=== PATIENT | female | born 1990 | race Hispanic/Latino ===

== ENCOUNTER 2016-10-08 19:21 | Inpatient (IN) | payer MEDICAID ==
[2016-10-08] MEDS ORDERED: Lactated Ringer's 1,000 ML IV SCH (20:21)
[2016-10-08 20:35] VITALS: BMI 31.8
[2016-10-08 20:44] LABS: BASO % 0.4 % (0.0-2.0); EOS # 0.2 K/uL (0.0-0.7); EOS % 2.8 % (0.0-4.0); HEMATOCRIT 30.6 % (34.0-47.0); LYMPH % 22.6 % (20.0-40.0); MEAN CELL VOLUME 68.5 fl (81.0-99.0); MEAN CORPUSCULAR HEMOGLOBIN 21.4 pg (27.0-31.0); MEAN CORPUSCULAR HGB CONC 31.2 g/dL (33.0-37.0); MEAN PLATELET VOLUME 9.1 fl (7.2-11.7); MONO # 0.4 K/uL (0.0-0.8); NEUT # 6.1 K/uL (1.8-7.0); NEUT % 69.2 % (50.0-75.0); NRBC % 0.1 % (0.0-0.0); WHITE BLOOD COUNT 8.9 K/uL (4.8-10.8)
[2016-10-08] MEDS ORDERED: ceFAZolin 2 GM in Sodium Chloride 0.9% 100 ML IVPB ONE (20:45)
[2016-10-08] MEDS ORDERED: Morphine 1 mg/ml preservative-free Inj(Duramorph) ONE (21:52)
[2016-10-08] MEDS ORDERED: ePHEDrine 50 mg/ml Inj ONE ×3 (21:53→22:53)
[2016-10-08] MEDS ORDERED: Phenylephrine 10 mg/ml Inj ONE (21:53)
[2016-10-08] MEDS ORDERED: Atropine 0.4 mg/ml Inj (1 mL) ONE (22:13)
[2016-10-08] MEDS ORDERED: Ketamine 50 mg/ml Inj (10 ml) ONE (23:15)
[2016-10-08] MEDS ORDERED: Propofol 10 mg/ml Inj (20 ML) ONE (23:16)
[2016-10-08] MEDS ORDERED: Succinylcholine 200 mg/10 ml Inj IV ONE (23:16)
[2016-10-08] MEDS ORDERED: Absorbable Gelatin Sponge Size 12-7 ONE (23:23)
[2016-10-09] MEDS ORDERED: Oxycodone/Acetaminophen 5/325 mg Tab PO PRN (00:21)
[2016-10-09] MEDS ORDERED: Bisacodyl 5mg EC Tab PO PRN ×2 (00:31→18:53)
[2016-10-09] MEDS ORDERED: ceFAZolin 2 GM in Sodium Chloride 0.9% 100 ML IVPB ONE (00:35)
[2016-10-09 03:16] LABS: HEMATOCRIT 22.3 % (34.0-47.0); MEAN CELL VOLUME 68.4 fl (81.0-99.0); MEAN CORPUSCULAR HEMOGLOBIN 21.3 pg (27.0-31.0); MEAN CORPUSCULAR HGB CONC 31.1 g/dL (33.0-37.0); RED CELL DISTRIBUTION WIDTH 19.1 % (11.5-14.5); WHITE BLOOD COUNT 13.2 K/uL (4.8-10.8)
[2016-10-09] MEDS: DiphenhydrAMINE 50 mg/ml Inj IVP PRN ×2 (04:07→10:32)
[2016-10-09 06:40] VITALS: BP 116/70; PULSE 94; RESP 18; TEMP 98.4
[2016-10-09 10:51] LABS: BASO % 0.5 % (0.0-2.0); EOS # 0.1 K/uL (0.0-0.7); HEMATOCRIT 19.3 % (34.0-47.0); LYMPH # 1.4 K/uL (1.0-4.3); LYMPH % 16.6 % (20.0-40.0); MEAN CELL VOLUME 68.6 fl (81.0-99.0); MEAN CORPUSCULAR HEMOGLOBIN 21.3 pg (27.0-31.0); MEAN PLATELET VOLUME 8.8 fl (7.2-11.7); MONO # 0.5 K/uL (0.0-0.8); MONO % 5.7 % (0.0-10.0); NEUT # 6.7 K/uL (1.8-7.0); NEUT % 76.2 % (50.0-75.0); RED CELL DISTRIBUTION WIDTH 18.6 % (11.5-14.5); WHITE BLOOD COUNT 8.7 K/uL (4.8-10.8)
[2016-10-09] MEDS ORDERED: Lactated Ringer's 1,000 ML IV SCH (11:10)
[2016-10-09] MEDS ORDERED: Sodium Chloride 0.9% 1,000 ML IV SCH (11:45)
[2016-10-09] MEDS: Simethicone 80 mg Chewtab PO SCH ×2 (12:29→18:52)
[2016-10-09] MEDS ORDERED: DiphenhydrAMINE 50 mg/ml Inj IVP PRN (18:53)
[2016-10-09 19:05] LABS: BASO % 0.5 % (0.0-2.0); EOS # 0.2 K/uL (0.0-0.7); EOS % 1.8 % (0.0-4.0); HEMATOCRIT 24.1 % (34.0-47.0); LYMPH # 1.4 K/uL (1.0-4.3); LYMPH % 15.4 % (20.0-40.0); MEAN CELL VOLUME 73.2 fl (81.0-99.0); MEAN CORPUSCULAR HEMOGLOBIN 23.3 pg (27.0-31.0); MEAN CORPUSCULAR HGB CONC 31.9 g/dL (33.0-37.0); MEAN PLATELET VOLUME 8.5 fl (7.2-11.7); MONO # 0.6 K/uL (0.0-0.8); MONO % 6.4 % (0.0-10.0); NEUT # 6.9 K/uL (1.8-7.0); NEUT % 75.9 % (50.0-75.0); RED CELL DISTRIBUTION WIDTH 22.5 % (11.5-14.5); WHITE BLOOD COUNT 9.1 K/uL (4.8-10.8)
[2016-10-09 19:15] LABS: ALB/GLOB RATIO 0.9 (1.0-2.1); ALKALINE PHOSPHATASE 169 U/L (38-126); ALT/SGPT 27 U/L (9-52); AST/SGOT 37 U/L (14-36); BILIRUBIN,TOTAL 0.3 mg/dl (0.2-1.3); BLOOD UREA NITROGEN 4 mg/dl (7-17); CARBON DIOXIDE 24 mmol/L (22-30); CHLORIDE 104 mmol/L (98-107); GFR AFRICAN-AMERICAN > 60; GLUCOSE,RANDOM 70 mg/dL (65-105); POTASSIUM 3.5 MMOL/L (3.6-5.0); SODIUM 132 mmol/l (132-148)
[2016-10-10] MEDS: Simethicone 80 mg Chewtab PO SCH ×5 (01:08→21:57)
[2016-10-10] MEDS: Oxycodone/Acetaminophen 5/325 mg Tab PO PRN ×3 (06:29→21:58)
[2016-10-10] MEDS: Lactated Ringer's 1,000 ML IV SCH ×3 (06:31→21:55)
--- NOTE | 2016-10-10 11:02 | OBPPN ---
Datetime: 10/10/2016 08:20 PP Pain Prov: Within normal limits PP Nausea Prov: Denies PP Flatus Prov: Yes PP BM Prov: No PP Heart Prov: Normal PP Lungs Prov: Normal PP Lochia Prov: Normal PP Extremities Prov: Normal PP Comments Phys Exam Prov: not acute distress lungs CTA B/L RRR, S1S2, no murmurs, no calf tenderness Abd: Tender, Uterus umb level, firm, BS+ Incision covered with dressing, dry, clean Alert, orientedx3 PP Plan Prov: Continue present management PP Impression Other Prov: PP bleeding PP Progress Note Prov: POD2 Patient seen at bedside doing better, breast pumping in progress. Denies CP, palpitations or dizzi ness. She received 2 units or PRBC yesterday and states since then she feels better. Au in place w ith clear urine. Patient is tolerating PO liquids sicne last night. +Flatus, no BM. C/O pelvic pain c ontrolled with meds. Lochia less than menses. Transferred from L_D unit to PP unit this AM. PE: as above A: 25 y/o F s/p C-Sect POD2 PP bleeding P: -C/w current plan -Motrin and percocet PRN for pain. -C/w Au and f/u I_O -C/w dressing and monitor bleeding. Last H_H: 7.7/24.1 yesterday -reg diet -Will monitor closely Hong Pittman PGY1 Case discussed with Dr Da Silva Addendum by Dr. Da Silva: I have evaluated patient independently and I agree with the above. Patient stable, tolerating PO diet, VSS, +au draining clear urine >100/hr, denies CP, no SOB, no N/V, sitt ing up to chair, bandage over incision clean. Continue reg diet, Motrin/Percocet prn pain, Colace prn constipation, Mylicon prn gas pain, Encourage up to bed, will remove au later tonight or tomorrow IP PP Procedures: Transfusion Vital Signs Provider PP: Reviewed
[2016-10-10] MEDS ORDERED: TDAP Vaccine 0.5 mL Syr IM ONE (17:00)
[2016-10-10] MEDS ORDERED: Pneumococcal 23-Valent Vaccine IM ONE (17:00)
[2016-10-11] MEDS: Simethicone 80 mg Chewtab PO SCH ×2 (05:40→09:02)
[2016-10-11] MEDS: Oxycodone/Acetaminophen 5/325 mg Tab PO PRN (05:55)
--- NOTE | 2016-10-11 08:36 | OP ---
PROCEDURE DATE: 10/08/2016 SURGEON: Allison Da Silva. LAMP ASSEMBLER: , PGY-[address] Sellers. PREOPERATIVE DIAGNOSES: 1. Previous x 2. 2. Term at 39 weeks in labor. PROCEDURE: Repeat low transverse . POSTOPERATIVE DIAGNOSES: 1. Previous x 2. 2. Term at 39 weeks in labor. FINDINGS: Live male , 6 pounds 15 ounces, cephalic presentation, clear fluid, increased amount of dense adhesions. Normal placenta, unable to visualize tubes and ovaries and the majority of the uterus. ESTIMATED BLOOD LOSS: 1200 mL. URINE OUTPUT: 1200 mL. ANESTHESIA: Spinal by Dr. Mobley. COMPLICATIONS: None. CONDITION: Stable. PATHOLOGY SPECIMEN: Placenta. INDICATION: This is a 25-year-old G6, P2-0-3-2 at 39 weeks and 2 days, previous x 2 who pr esented to labor and delivery with abdominal pain and contractions. The patient was in early labor w as advised to proceed with a repeat . The patient also had 2 prior abdominoplasties as well , so total of 4 previous surgeries. The patient was advised of risks and benefits of the procedure i ncluding risk of bleeding, infection, damage to surrounding organs such as bowel, bladder, ureter, ut erus and signed informed consent as well as consent for blood transfusion. PROCEDURE: The patient was given Ancef en route to OR, IV fluids were running preoperatively. The p atient was given spinal anesthesia without difficulty. The patient was placed in dorsal lithotomy po sition with leftward tilt. Pfannenstiel incision was made with the scalpel and carried through the u nderlying layer of fascia with the Bovie. The patient's fascia was noted to be generally distorted b ecause of the 2 abdominoplasties that she had prior. Once attempting to enter the incision extended laterally with the Bovie. Skyler clamps were used to tent up the inferior and superior aspect of the incision and the pyramidalis muscles were dissected off of the lower aspect of this incision and the rectus abdominis muscles was, in a similar fashion, dissected off at the superior aspect of this inc ision with the Bovie. Allis clamps were used to tent up the midline and carefully with the scalpel, w e dissected through the midline. Again it was noted that there were dense amount of adhesions and it was very difficult to identify appropriate planes of tissue. Through careful dissection with the Me vang and Salgado scissors, we were able to dissect away the muscle and the vesicouterine peritoneal on the left side to reveal the anterior plane of the uterus on the left side. The right side was com pletely adhesed together, it was unable to be . At this point, we were able to make a trans verse lower uterine segment incision with the scalpel, entered the uterine cavity and the incision ex tended manually and the infant was delivered in cephalic presentation followed by shoulders and rest of the infant atraumatically. Cord was clamped and cut. Mouth and nose were suctioned. Infant was handed off to waiting pediatric team. Placenta was extracted manually. The uterus was closed with a n 0 Vicryl suture and there were multiple sources of bleeding that were isolated at the left angle th at were very difficult to visualize. We used multiple rounds of 2-0 Monocryl to tamponade and create hemostasis. We also used Surgicel a hemostatic agent to help create hemostasis. There was very sli ght oozing from the scar tissue and the muscle wall, but with applied pressure at the end it was felt that the patient appeared to be stabilized. We reapproximated the left muscle together with a 2-0 M onocryl stitch. We closed the fascia with an 0 Vicryl stitch, the subcutaneous fat was closed with a plain gut suture and the skin was closed with 4-0 Monocryl. Sponge, lap and needle counts were tay ect x 4. The case took almost 2 hours, so patient was almost 3 hours since her first antibiotic dose so she was given another round of Ancef. There were no other complications. Allison Da Silva MD cc: [id number] TT: 10/09/2016 12:19:34 jn
--- NOTE | 2016-10-13 15:15 | OBADHP ---
Datetime: 10/08/2016 20:23 Admit Comment, IP Provider: CHAPO # [id number] 25 y/o @ 39.2 weeks via U/S presents to [facility] complaining of CTX and pain. Pain started subha gelacio of 10/07 but worsened this morning @10am. Pain is 8-9/10 and occurs every 3-5 minutes. No other complaints. Denies VB/LOF and reports +FM. Denies fever/chills, headaches, visual disturbances, CP/SO B, N/V/D, urinary symptoms, numbness/tingling. : [facility], no issues during pregancy Labs: O+, Ab -, RPR/HIV NR, Rubella Immune, GBS neg, HBsAg neg POBHx: 2007 @ 40 weeks, 2013 @ 40 weeks, 1 ectopic 2015, 2SABs PMHx: none PsurgHx: 2 Abdominalplasties MEDS: PNVs ALL: NKDA SocialHx: Hx of unknown drug abuse prior to pregnacy, denies usage during. Denies ETOH/Tobacco A/P: 25 y/o @ 39.2 weeks IUP admitted for labor and -admit to unit for -CBC, Type and Screen -LR 125mls/hr MX -Ancef 2gm -NPO -pt seen and case discussed with Dr. Avinash Torres MD PGY1 @ 20:[address] Da Silva: Patient evalauted independently and I agree with the above. Patient is a @ 39.2 wks with abdominal pain and trixie. Patient is previous x 2, previous Ect opic , previous abdminalplasty, no other medical/surgical problems. Patient is in early labo r and uncomfortable, advised to proceed with repeat . Patient advised of risks and benefits of repeat surgery, signed informed consent, Ancef to be given en route to OR, SCDs bilaterally, will proceed to OR when available Pelvic Type - PN: Adequate Extremities - PN: Normal Abdomen - PN: Normal Back - PN: Normal Breast - PN: Normal Lungs - PN: Normal Heart - PN: Normal Thyroid - PN: Normal Neurologic - PN: Normal HEENT - PN: Normal General - PN: Normal Membranes, Provider: Intact Vital Signs Provider: Reviewed; Within Normal Limits IP Chief Complaint: Uterine contractions Genitourinary Exam: Normal DTRs - PN: Normal IP Adm Impression: Term, intrauterine IP Admit Plan: Admit to unit; Initiate Section protocol
--- NOTE | 2016-10-13 15:15 | OBPPN ---
Datetime: 10/09/2016 11:20 PP Pain Prov: Within normal limits PP Nausea Prov: Denies PP Flatus Prov: Yes PP Breasts Prov: Normal PP Heart Prov: Normal PP Lungs Prov: Normal PP Abdomen/Uterus Prov: Normal PP Lochia Prov: Normal PP Vulva/Perineum Prov: Normal PP CVA Tenderness Prov: Normal PP Extremities Prov: Normal PP Comments Phys Exam Prov: bandage over incision clean fundus 1 fingerbreath above umbilicus abdomen soft PP Plan Prov: Continue present management PP Progress Note Prov: Patient has no complaints, no CP, no SOB, no N/V, tolerating PO liquids, no d izziness, mild lochia, abdominal pain tolerable with meds, abdomen soft, non-distended, no gaurding, no rebound, bandage over incision clean. Repeat Hgb = 6.0. HR = 100s - 1300s. BP = 100s/50s - 130s/80 s. UO = about 50/hr. Will increase fluid input to 175/hr and transfuse blood 2 units packed red cells . Will continue to watch I/Os closely. WIll give PO liquids Vital Signs Provider PP: Reviewed; Within Normal Limits
--- NOTE | 2016-10-13 15:15 | OBDS ---
DELIVERY PERSONNEL Delivery Doctor: Yolie Da Silva MD Scrub Nurse: Loly Lozano OBT Avionics Engineer: Carol García RN Anesthesiologist: Greta Mobley MD MATERNAL INFORMATION Delivery Anesthesia: Spinal Medications in Delivery: PITOCIN 20 UNITS IN 1000ML LR Placenta Cultured: No Maternal Complications: None Provider Comments: Surgeon: Dr. Da Silva Rails Developer: Dr. Cramer, Dr. Sellers Pre-operative Dx: Previous x 2, Term in early labor Findings: Live male 6lbs 15oz, 01/08, increased dense adhesions, normal placenta, unable to v isualize tubes/ovaries, most of uterus Post-operative Dx: same EBL:1200mL Anesthesia:spina by Dr. Mobley Total input: 4800mL Urine output: 1200mL Complications: lysis of adhesions Condition; Stable Pathology: Cord blood LABOR SUMMARY EDC: 10/13/2016 00:00 No. Babies in Womb: 1 Attempted: No Labor Anesthesia: SPINAL LABOR INFORMATION Reason for Induction: Not Applicable Onset of Labor: 10/08/2016 17:00 Oxytocin: N/A Group B Beta Strep: Negative Antibiotics # of Doses: 1 Antibiotics Time of Last Dose: 2144 Steroids Given: None Reason Steroids Not Administered: Not Applicable MEMBRANES Membranes Rupture Method: Artificial Rupture of Membranes: 10/08/2016 22:46 Length of Rupture (hrs): 0.00 Amniotic Fluid Color: Clear Amniotic Fluid Amount: Moderate STAGES OF LABOR Stage 3 hrs: 0 Stage 3 min: 1 Total Time in Labor hrs: 5 Total Time in Labor min: 47 CSECTION DELIVERY Primary Indication: Repeat Elective CSection Urgency: Emergency CSection Incidence: Repeat Labor: Labor CSection Incision: Lower Uterine Transverse BABY A INFORMATION Delivery Date/Time: 10/08/2016 22:46 Method of Delivery: Born in Route : No : N/A Forceps: N/A Vacuum Extraction: N/A Shoulder Dystocia : No SHOULDER DYSTOCIA BABY A Delivery Date/Time: 10/08/2016 22:46 PRESENTATION/POSITION BABY A Presentation: Cephalic Cephalic Presentation: Vertex Breech Presentation: N/A PLACENTA INFORMATION BABY A Placenta Delivery Time : 10/08/2016 22:47 Placenta Method of Delivery: Manual Removal Placenta Status: Delivered SCORES BABY A Heart Rate 1 min: >100 bpm Resp Effort 1 min: Good Cry Reflex Irritability 1 min: Cough or Sneeze or Pulls Away Muscle Tone 1 min: Active Motion Color 1 min: Body [place], Extremities Blue Resuscitation Effort 1 min: Tactile Stimulation SCORE 1 MIN: 9 Heart Rate 5 min: >100 bpm Resp Effort 5 min: Good Cry Reflex Irritability 5 min: Cough or Sneeze or Pulls Away Muscle Tone 5 min: Active Motion Color 5 min: Body [place], Extremities Blue Resuscitation Effort 5 min: N/A SCORE 5 MIN: 9 INFANT INFORMATION BABY A Gestational Age at Delivery: 39.0 Gestational Status: Term Infant Outcome : Liveborn Infant Condition : Stable Infant Sex: Male IDENTIFICATION/MEDS BABY A ID Band Number: [id number] ID Band Location: Left Leg; Left Arm WEIGHT/LENGTH BABY A Birthweight (gms): 3140 Weight (lb): 6 Weight (oz): 15 CORD INFORMATION BABY A No. Cord Vessels: 3 Nuchal Cord : N/A Infant Suction: None; Mouth
--- NOTE | 2016-10-13 15:15 | OBPPN ---
Datetime: 10/09/2016 06:17 PP Pain Prov: Within normal limits PP Nausea Prov: Denies PP Flatus Prov: Yes PP Breasts Prov: Normal PP Heart Prov: Normal PP Lungs Prov: Normal PP Abdomen/Uterus Prov: Normal PP Lochia Prov: Normal PP Vulva/Perineum Prov: Normal PP CVA Tenderness Prov: Normal PP Extremities Prov: Normal PP Comments Phys Exam Prov: fundus firm 1 finger breath above umbilicus Incision intact, blood tinged PP Plan Prov: Continue present management PP Progress Note Prov: Patient evaluated multiple times during the night, the bandage over the incis ion soaked after 2 hours. Patient did not appear to have a preassure dressing and was leaning on her side. Patient had about 90 ml/hr of urine draining, VSS, fundus firm, abdomen otherwise soft with dionne ropriate tenderness. Patient now reaevaluated about 1/4 of the dressing has soaking, reinspected the incision not actively bleeding, only has blood coming when actively expressing. Hgb = 6.9 with normal coags, UO is adequate, patient's VSS and patient has no complaints. replaced bandage again and set t o have CBC drawn at noon. If bandage continues to soak will consider taking patinet back to OR and re -opening incision Vital Signs Provider PP: Reviewed; Within Normal Limits
== END 2016-10-11 17:30 | disposition home or self-care (01) | DRG 371 ==
LOC: EDSEX → EDBD → H.EROB2 19:21 → EDUNIT# 19:21 → MERGE 20:25 → H.L&D 20:25 → H.OB/GYN 10-10 07:49
PROVIDERS: ADMIT Obstetrics & Gynecology; ATTEND Obstetrics & Gynecology
PROC: 10D00Z1 Extraction of Products of Conception, Low, Open Approach (ICD-10-PCS; principal; 2016-10-08)
PROC: 4A1HXCZ Monitoring of Products of Conception, Cardiac Rate, External Approach (ICD-10-PCS; 2016-10-08)
PROC: 30233N1 Transfusion of Nonautologous Red Blood Cells into Peripheral Vein, Percutaneous Approach (ICD-10-PCS; 2016-10-09)
PROC: 3E0234Z Introduction of Serum, Toxoid and Vaccine into Muscle, Percutaneous Approach (ICD-10-PCS; 2016-10-10)
DX: O34.211 Maternal care for low transverse scar from previous cesarean delivery (principal); O72.2 Delayed and secondary postpartum hemorrhage; Z37.0 Single live birth; Z3A.39 39 weeks gestation of pregnancy; Z23 Encounter for immunization

== ENCOUNTER 2016-11-26 14:05 | Observation (INO) | payer MEDICAID, OTHER ==
[2016-11-26 14:05] VITALS: BMI 45.3
[2016-11-26 14:10] VITALS: RESP 18
[2016-11-26] MEDS ORDERED: Sodium Chloride 0.9% 1,000 ML IV STA (14:30)
[2016-11-26 15:00] LABS: BASO % 0.5 % (0.0-2.0); EOS # 0.2 K/uL (0.0-0.7); EOS % 1.8 % (0.0-4.0); HEMATOCRIT 37.8 % (34.0-47.0); LYMPH # 1.8 K/uL (1.0-4.3); LYMPH % 19.6 % (20.0-40.0); MEAN CELL VOLUME 82.2 fl (81.0-99.0); MEAN CORPUSCULAR HEMOGLOBIN 26.8 pg (27.0-31.0); MEAN CORPUSCULAR HGB CONC 32.6 g/dL (33.0-37.0); MEAN PLATELET VOLUME 8.2 fl (7.2-11.7); MONO # 0.6 K/uL (0.0-0.8); MONO % 6.7 % (0.0-10.0); NEUT # 6.7 K/uL (1.8-7.0); NEUT % 71.4 % (50.0-75.0); NRBC % 0.1 % (0.0-0.0); RED CELL DISTRIBUTION WIDTH 16.6 % (11.5-14.5); WHITE BLOOD COUNT 9.4 K/uL (4.8-10.8)
[2016-11-26 15:39] LABS: ALB/GLOB RATIO 1.4 (1.0-2.1); ALKALINE PHOSPHATASE 85 U/L (38-126); ALT/SGPT 35 U/L (9-52); AST/SGOT 42 U/L (14-36); BILIRUBIN,TOTAL 0.4 mg/dl (0.2-1.3); BLOOD UREA NITROGEN 18 mg/dl (7-17); CALCIUM 9.7 mg/dL (8.4-10.2); CARBON DIOXIDE 23 mmol/L (22-30); CHLORIDE 106 mmol/L (98-107); GFR AFRICAN-AMERICAN > 60; GLUCOSE,RANDOM 110 mg/dL (65-105); LIPASE 66 U/L (23-300); POTASSIUM 4.1 MMOL/L (3.6-5.0); SODIUM 142 mmol/l (132-148)
[2016-11-26 15:40] LABS: RBC URINE 1 /hpf (0-3); URINE BILIRUBIN NEGATIVE (NEGATIVE); URINE BLOOD NEGATIVE (NEGATIVE); URINE COLOR YELLOW (YELLOW); URINE GLUCOSE (UA) NEG (Normal); URINE KETONE NEGATIVE (NEGATIVE); URINE LEUKOCYTE ESTERASE NEG Leu/uL (Negative); URINE PROTEIN NEGATIVE (NEGATIVE); URINE UROBILINOGEN 0.2-1.0 mg/dL (0.2-1.0); WBC URINE 2 /hpf (0-5)
[2016-11-26] MEDS ORDERED: Sodium Chloride 0.9% 50 ML IV ONE (16:47)
[2016-11-26] MEDS ORDERED: Iohexol 300 100 ML IJ ONE (16:47)
--- NOTE | 2016-11-26 17:30 | ED PDOC ---
HPI: Abdomen Time Seen by Provider: 11/26/16 14:36 Chief Complaint (Nursing): Abdominal Pain Chief Complaint (Provider): abdominal pain History Per: Patient History/Exam Limitations: no limitations Additional Complaint(s): 25yo F in ED for eval of sever abd pain x 2 hours states she has bee taking motrin daily for dental work 3-4d ago. admits to lower abd pain radiating to back with some nausea. no fever no chill no vomiting. pt also c/o of left calf pain states that she just started taking depopreva. no SOB no CP. Abnormal Vaginal Bleeding: No Past Medical History Reviewed: Historical Data, Nursing Documentation, Vital Signs Vital Signs: Last Vital Signs Temp 98 F 11/26/16 17:16 Pulse 62 11/26/16 17:16 Resp 18 11/26/16 17:16 BP 110/62 11/26/16 17:16 Pulse Ox 99 11/26/16 20:11 - Medical History PMH: Gall Bladder Disease, Hypercholesterolemia Denies: HIV, Chronic Kidney Disease - Surgical History Surgical History: Cholecystectomy, Endoscopy, - Family History Family History: States: No Known Family Hx - Immunization History Hx Tetanus Toxoid Vaccination: No Hx Influenza Vaccination: No Hx Pneumococcal Vaccination: No - Home Medications Home Medications: Ambulatory Orders Medication Instructions Recorded Amox Tr K 875 tab PO BID 02/07/14 Ascorbic Acid [Vitamin C] 500 mg PO DAILY 02/07/14 Atorvastatin [Lipitor] 20 mg PO DAILY 02/07/14 Ergocalciferol (Vitamin D2) 2,000 iu PO DAILY 02/07/14 [Vitamin D2] Metformin Hydrochloride [Metformin 500 mg PO DAILY 02/07/14 HCl] Ascorbic Acid [Vitamin C] 1 tab PO DAILY 04/03/14 Atorvastatin [Lipitor] 1 tab PO HS 04/03/14 Ergocalciferol [Vitamin D] 1 tab PO QWK 04/03/14 Ferrous Sulfate 1 tab PO DAILY 04/03/14 Metformin Hydrochloride [Metformin] 1 tab PO DAILY 04/03/14 Multivitamin [Multivitamin For 1 cap PO DAILY 04/03/14 Women] Ibuprofen [Motrin Tab] 800 mg PO Q4 PRN #30 tab 04/10/14 Ferrous Sulfate [Ferosul] 325 mg PO TID #30 tablet 10/11/16 Ibuprofen [Motrin] 600 mg PO Q6 PRN #30 tab 10/11/16 Sennosides/Docusate Sodium 1 each PO HS #10 tablet 10/11/16 [Senokot-S Tablet] oxyCODONE/Acetaminophen [Percocet 1 tab PO Q6 PRN #30 tab 10/11/16 5/325 mg Tab] Famotidine [Pepcid] 20 mg PO BID #16 tab 11/26/16 - Allergies Allergies/Adverse Reactions: Allergies Allergy/AdvReac Type Severity Reaction Status Date / Time No Known Allergies Allergy Unverified 02/07/14 09:56 Review of Systems ROS Statement: Except As Marked, All Systems Reviewed And Found Negative Gastrointestinal: Positive for: Nausea, Abdominal Pain. Negative for: Vomiting , Diarrhea, Constipation Physical Exam - Reviewed Nursing Documentation Reviewed: Yes Vital Signs Reviewed: Yes - Physical Exam Appears: Positive for: Non-toxic, No Acute Distress, Uncomfortable Skin: Positive for: Normal Color, Warm, DRY Cardiovascular/Chest: Positive for: Regular Rate, Rhythm Respiratory: Positive for: CNT, Normal Breath Sounds Gastrointestinal/Abdominal: Positive for: Bowel Sounds, Soft, Tenderness ( suprapubic tenderness) Neurologic/Psych: Positive for: Alert, Oriented - Laboratory Results Result Diagrams: 11/26/16 14:59 11/26/16 14:30 - ECG O2 Sat by Pulse Oximetry: 99 - CT Scan/US US: LE Other Rad Studies (CT/US): Radiology Report Reviewed ((-) DVT. ) - Progress ED Course And Treament: Pt will get CT of abd sonte vs pyelo pain control, fluids pepcid, and US r/o DVT CT scan: IMPRESSION: 1. Subcutaneous fat stranding in the anterior pelvic wall with indistinct appearance of the rectus sheath and small amount of fluid in the left paramedian anterior pelvis anterior to the uterus could be related to infectious / inflammatory etiology. Correlation with recent surgical history is also advised. The sterility of this fluid cannot be determined on the basis of imaging. Please correlate with labs and clinical history. No definite evidence of abscess or drainable fluid collection. 2. No acute abdominal abnormality. Re-evaluation Time: 20:08 Condition: Improved (no longer with any abdominal discomfort. ) ED OBSERVATION Date of observation admission: 11/26/16 Time of observation admission: 17:47 - Observation admission statement Patient is being placed in observation because:: abd pain and calf pain - Goals of Observation Goals of observation are:: pending labs results Disposition - Clinical Impression Clinical Impression: Abdominal cramps, Muscle pain - Patient ED Disposition Is Patient to be Admitted: Transfer of Care Counseled Patient/Family Regarding: Studies Performed, Need For Followup - Disposition [facility] Disposition: Routine/Home Disposition Time: 20:12 Condition: STABLE Prescriptions: Famotidine [Pepcid] 20 mg PO BID #16 tab Instructions: Muscle Strain (ED), Abdominal Pain (ED) Forms: [employer] (Czech) Patient Signed Over To: Bell Medina ([place] pending)
--- NOTE | 2016-11-26 17:46 | CT ---
PROCEDURE: CT Abdomen and Pelvis with contrast HISTORY: surpapubic pain severe COMPARISON: None. TECHNIQUE: CT scan of the abdomen and pelvis was performed after intravenous administration of contrast. Oral contrast was not administered. Coronal and sagittal reformatted images were obtained. Radiation dose: Total exam DLP = 909.38 mGy-cm. This CT exam was performed using one or more of the following dose reduction techniques: Automated exposure control, adjustment of the mA and/or kV according to patient size, and/or use of iterative reconstruction technique. FINDINGS: LOWER THORAX: There is dependent atelectasis in the lower lobes. There are retroglandular saline implants. LIVER: The liver is enlarged and there is diffuse low attenuation. No intrahepatic biliary ductal dilatation. GALLBLADDER AND BILE DUCTS: The gallbladder is surgically absent. Mild diffuse dilatation of the common bile duct is in keeping with postcholecystectomy status. PANCREAS: The pancreas is normal in size and there is homogeneous enhancement without calcifications, mass or ductal dilatation. SPLEEN: There is mild splenomegaly. ADRENALS: Both adrenal glands are normal in size without discrete nodule. KIDNEYS AND URETERS: Both kidneys are normal in size and there is homogeneous enhancement without hydronephrosis or mass. VASCULATURE: No aortic aneurysm. BOWEL: Fluid-filled small bowel loops are normal in caliber. There is moderate amount of stool throughout the colon. There is no evidence of bowel dilatation or obstruction APPENDIX: Normal appendix. PERITONEUM: No free air. There is small amount of free fluid in the pelvis. LYMPH NODES: No enlarged lymph nodes. BLADDER: Normal in appearance. REPRODUCTIVE: The uterus is retroverted and normal in size. There is fluid in the endometrial cavity. Please correlate with clinical history. BONES: No acute fracture. OTHER FINDINGS: There is mild stranding of subcutaneous fat in the anterior pelvic wall, indistinct appearance of the rectus sheath and small amount of fluid in the left paramedian pelvis anterior to the uterus. IMPRESSION: 1. Subcutaneous fat stranding in the anterior pelvic wall with indistinct appearance of the rectus sheath and small amount of fluid in the left paramedian anterior pelvis anterior to the uterus could be related to infectious/ inflammatory etiology. Correlation with recent surgical history is also advised. The sterility of this fluid cannot be determined on the basis of imaging. Please correlate with labs and clinical history. No definite evidence of abscess or drainable fluid collection. 2. No acute abdominal abnormality.
--- NOTE | 2016-11-26 20:43 | US ---
EXAM: US Pelvis Complete, Transabdominal CLINICAL HISTORY: 25 years old, female; Pain; Pelvic pain; Additional info: Pel; Roberto pain; LMP 11/22/16 TECHNIQUE: Real-time transabdominal pelvic ultrasound (complete) with image documentation. COMPARISON: There are no prior studies for comparison. FINDINGS: Uterus: Uterus measures approximately 12.1 x 5.9 x 5.3 cm. There is fluid in the endometrial canal. Endometrial canal measures 1.6 cm in width. Right ovary: Right ovary measures approximately 2.9 x 1.6 x 2.5 cm. There are multiple small follicles. There is intraovarian blood flow. Left ovary: Left ovary measures approximately 4.6 x 1.1 x 1.8 cm. There are multiple small follicles. Free fluid: There is no significant fluid. Bladder: Bladder is not optimally visualized IMPRESSION: Fluid in the endometrial canal EXAM: US Pelvis, Transvaginal CLINICAL HISTORY: 25 years old, female; Pain; Pelvic pain; Additional info: Pel; Roberto pain; LMP 11/22/16 TECHNIQUE: Real-time transvaginal pelvic ultrasound (complete) with image documentation. Transvaginal imaging was used for better evaluation of the endometrium and adnexa. EXAM DATE/TIME: 11/26/2016 6:00 PM COMPARISON: There are no prior studies for comparison. FINDINGS: Uterus: There is complex debris in the endometrial canal uterine fundus. Endometrial forte measure approximately 2 mm in width. There is no endometrial flow on color imaging. Right ovary: Right ovary measures 2.91 x 1.16 x 2.48 cm. There are multiple small follicles. There is intraovarian blood flow. Left ovary: Left ovary measures 3.15 x 2.33 x 2.42 cm. There are multiple small follicles. There is intraovarian blood flow. Free fluid: There is trace free fluid. IMPRESSION: Heterogeneous avascular debris in the endometrial canal; normal ovaries
--- NOTE | 2016-11-26 20:45 | US ---
EXAM: US Duplex Left Lower Extremity Veins CLINICAL HISTORY: 25 years old, female; Pain; Leg, lower; Left; Additional info: Calf pain taking hromone replacment TECHNIQUE: Real-time ultrasound scan of the veins of the left lower extremity with color Doppler flow, spectral waveform analysis and compression. EXAM DATE/TIME: 11/26/2016 4:07 PM COMPARISON: There are no prior studies for comparison. FINDINGS: Deep veins: Common femoral, superficial femoral, popliteal and posterior tibial veins were evaluated. All veins examined are compressible. There are no intraluminal filling defects. There is expected blood flow on Doppler imaging. There is change in waveform with augmentation. Impression: No deep venous thrombosis in the visualized vascular segments of the left lower extremity
--- NOTE | 2016-11-26 21:26 | ED PDOC ---
- Laboratory Results Result Diagrams: 11/26/16 14:59 11/26/16 14:30 - ECG O2 Sat by Pulse Oximetry: 99 Pulse Ox Interpretation: Normal Medical Decision Making Medical Decision Making: US report discussed. Follow-up with SOCCER COACH. Disposition - Clinical Impression Clinical Impression: Abdominal cramps, Muscle pain - POA Present On Arrival: None - Disposition Disposition: Routine/Home Disposition Time: 21:11 Condition: STABLE
[2016-11-26 22:30] VITALS: BP 130/80; PULSE 81; TEMP 98; O2SAT 100
== END 2016-11-26 22:33 | disposition home or self-care (01) ==
LOC: H.ER 14:05 → H.EROBSV 17:47
PROVIDERS: ADMIT Emergency Medicine; ATTEND Emergency Medicine
DX: R10.30 Lower abdominal pain, unspecified (principal); M79.662 Pain in left lower leg; M79.1 Myalgia; E78.00 Pure hypercholesterolemia, unspecified; K82.9 Disease of gallbladder, unspecified; Z79.899 Other long term (current) drug therapy; R11.0 Nausea

== ENCOUNTER 2017-07-31 02:25 | Emergency (ER) | payer SELFPAY ==
[2017-07-31 02:26] VITALS: BMI 45.3
[2017-07-31 02:50] VITALS: BP 115/73; PULSE 98; RESP 18; TEMP 97.5; O2SAT 100
[2017-07-31] MEDS ORDERED: Naproxen 500 MG TAB PO STA (03:27)
[2017-07-31] MEDS ORDERED: Naproxen 500 MG TAB PO ONE (03:36)
--- NOTE | 2017-07-31 04:46 | ED PDOC ---
HPI: General Adult Time Seen by Provider: 07/31/17 02:56 Chief Complaint (Nursing): Abnormal Skin Integrity Chief Complaint (Provider): Abnormal Skin Integrity History Per: Patient History/Exam Limitations: no limitations Onset/Duration Of Symptoms: Days (x2) Current Symptoms Are (Timing): Still Present Additional Complaint(s): Daina Veras is a 26 year old female with no past medical history, who is presenting to the ER for evaluation of painful bumps to the scalp associated with itchiness, onset 2 days ago. Tonight, patient reports that she was a libertarian and drank alcohol, which worsened the pain, and prompted the ED visit. She denies taking any medications prior to arrival as well as history of similar symptoms. She denies any fall, trauma, fever, headache, changes in vision, nausea, vomiting, or rash. Note: last normal menstrual period: 10/2016 - states she was recently and is still breast feeding. PMD: none provided Past Medical History Reviewed: Historical Data, Nursing Documentation, Vital Signs Vital Signs: Last Vital Signs Temp 97.5 F L 07/31/17 02:38 Pulse 98 H 07/31/17 02:38 Resp 18 07/31/17 02:38 BP 115/73 07/31/17 02:38 Pulse Ox 100 07/31/17 06:20 - Medical History PMH: Gall Bladder Disease, Hypercholesterolemia Denies: HIV, Chronic Kidney Disease - Surgical History Surgical History: Cholecystectomy, Endoscopy, (x4) - Family History Family History: States: Unknown Family Hx - Home Medications Home Medications: Ambulatory Orders Medication Instructions Recorded Amox Tr K 875 tab PO BID 02/07/14 Ascorbic Acid [Vitamin C] 500 mg PO DAILY 02/07/14 Atorvastatin [Lipitor] 20 mg PO DAILY 02/07/14 Ergocalciferol (Vitamin D2) 2,000 iu PO DAILY 02/07/14 [Vitamin D2] Metformin Hydrochloride [Metformin 500 mg PO DAILY 02/07/14 HCl] Ascorbic Acid [Vitamin C] 1 tab PO DAILY 04/03/14 Atorvastatin [Lipitor] 1 tab PO HS 04/03/14 Ergocalciferol [Vitamin D] 1 tab PO QWK 04/03/14 Ferrous Sulfate 1 tab PO DAILY 04/03/14 Metformin Hydrochloride [Metformin] 1 tab PO DAILY 04/03/14 Multivitamin [Multivitamin For 1 cap PO DAILY 04/03/14 Women] Ibuprofen [Motrin Tab] 800 mg PO Q4 PRN #30 tab 04/10/14 Ferrous Sulfate [Ferosul] 325 mg PO TID #30 tablet 10/11/16 Ibuprofen [Motrin] 600 mg PO Q6 PRN #30 tab 10/11/16 Sennosides/Docusate Sodium 1 each PO HS #10 tablet 10/11/16 [Senokot-S Tablet] oxyCODONE/Acetaminophen [Percocet 1 tab PO Q6 PRN #30 tab 10/11/16 5/325 mg Tab] Famotidine [Pepcid] 20 mg PO BID #16 tab 11/26/16 Cephalexin [cephalexin] 500 mg PO BID #14 cap 07/31/17 Naproxen 500 mg PO BID PRN #20 tablet. 07/31/17 - Allergies Allergies/Adverse Reactions: Allergies Allergy/AdvReac Type Severity Reaction Status Date / Time No Known Allergies Allergy Verified 07/31/17 02:45 Review of Systems ROS Statement: Except As Marked, All Systems Reviewed And Found Negative Constitutional: Negative for: Fever, Other (falls, trauma) Eyes: Negative for: Vision Change Gastrointestinal: Negative for: Nausea, Vomiting Skin: Negative for: Rash Neurological: Negative for: Headache Physical Exam - Reviewed Nursing Documentation Reviewed: Yes Vital Signs Reviewed: Yes - Physical Exam Comments: GENERAL APPEARANCE: Patient is awake, alert, oriented x 3, in no acute distress HEAD: (+) scattered abrasions and excoriations to the scalp. (+) 1x1 cm mobile mildly tender cyst like mass to occipital scalp. Dry flaking scalp noted. (-) drainage, (-) evidence for infection. SKIN: Warm, dry; (-) cyanosis. EYES: (-) conjunctival pallor, (-) scleral icterus. ENMT: Mucous membranes moist. NECK: Supple, FROM (-) tenderness, (-) stiffness, (-) lymphadenopathy. CHEST AND RESPIRATORY: (-) rales, (-) rhonchi, (-) wheezes; breath sounds equal bilaterally. HEART AND CARDIOVASCULAR: (-) irregularity; (-) murmur, (-) gallop. ABDOMEN AND GI: (-) distention. (-) tenderness. (-) guarding, (-) rebound, (-) palpable masses, (-) CVA tenderness. EXTREMITIES: (-) deformity, (-) edema, (+) distal pulses. NEURO AND PSYCH: Mental status as above; (-) focal findings. - ECG O2 Sat by Pulse Oximetry: 100 (RA) Pulse Ox Interpretation: Normal Medical Decision Making Medical Decision Making: Time: 3:27 Impression: scalp irritation, folliculitis vs dry scalp Plan: --Keflex 500 mg PO --Naproxen 500 mg PO 0430 On re-evaluation, patient reports improvement of symptoms. On exam, patient remains AAOx3, in no acute distress. Lungs clear to auscultation, cardiac RRR, abdomen soft, non-tender, repeat neuro exam shows no focal findings. VSS. Lab results reviewed, Diagnostic results d/w the patient in great detail. Diagnosis of folliculitis, dry scalp, dry scalp d/w the patient. Based on history, exam and diagnostic results, plan will be for outpatient follow up. Patient instructed to follow-up with pmd / referral provided / the clinic in 1- 2 days without fail. Advised to take medication as prescribed. Return to the emergency room at any time for any new or worsening symptoms. Patient states she fully agrees with and understands discharge instructions. States that she agrees with the plan and disposition. Verbalized and repeated discharge instructions and plan. I have given the patient opportunity to ask any additional questions. Scribe Attestation: Documented by Mary Livingston acting as a scribe for Tish Mensah PA-C., MD Scribe Attestation: All medical record entries made by the Scribe were at my direction and personally dictated by me. I have reviewed the chart and agree that the record accurately reflects my personal performance of the history, physical exam, medical decision making, and the department course for this patient. I have also personally directed, reviewed, and agree with the discharge instructions and disposition. Disposition - Clinical Impression Clinical Impression: Folliculitis, Scalp cyst, Dry scalp - Patient ED Disposition Is Patient to be Admitted: No Counseled Patient/Family Regarding: Diagnosis, Need For Followup, Rx Given - Disposition Referrals: [facility] [Outside] Disposition: Routine/Home Disposition Time: 04:36 Condition: FAIR Prescriptions: Cephalexin [cephalexin] 500 mg PO BID #14 cap Naproxen 500 mg PO BID PRN #20 tablet.dr DRISCOLL Reason: Pain, Mild (1-3) Instructions: Epidermal Cyst, Folliculitis Forms: [employer] (Divehi) Print Language: LEBANESE - POA Present On Arrival: None
== END 2017-07-31 04:55 | disposition home or self-care (01) ==
LOC: H.ER 02:25
DX: L73.9 Follicular disorder, unspecified (principal); L21.9 Seborrheic dermatitis, unspecified; L72.3 Sebaceous cyst; E78.00 Pure hypercholesterolemia, unspecified; Z79.84 Long term (current) use of oral hypoglycemic drugs